=== PATIENT | female | born 1965 | race Caucasian/White ===

== ENCOUNTER 2022-09-27 07:06 | Emergency (ER) | payer OTHER ==
[~2022-09-27] VITALS: Ht 157.5 cm; Wt 63.5 kg
[2022-09-27 07:19] VITALS: BP 131/78; PULSE 82; RESP 18; TEMP 97.8; O2SAT 98
[2022-09-27] MEDS ORDERED: ONDANSETRON 4 MG ODT PO ONE (07:35)
[2022-09-27] MEDS ORDERED: KETOROLAC 30 MG/ML VIAL IM ONE (07:35)
[2022-09-27] MEDS ORDERED: MORPHINE SULFATE 4 MG/ML SYR IM ONE (07:35)
[2022-09-27] MEDS ORDERED: NACL 0.9% 1,000 ML IV ONE (07:50)
[2022-09-27] MEDS ORDERED: MORPHINE SULFATE 2 MG/ML SYR IVP STA (08:04)
[2022-09-27] MEDS ORDERED: ONDANSETRON 4 MG/2 ML VIAL IVP ONE (08:05)
[2022-09-27] MEDS ORDERED: KETOROLAC 15 MG/ML VIAL IVP ONE (08:05)
[2022-09-27 08:28] LABS: BASOPHILS % (AUTO) 0.6 % (0.0-2.0); EOSINOPHILS # (AUTO) 0.1 K/uL (0-0.4); EOSINOPHILS % (AUTO) 0.9 % (0.0-4.0); HEMATOCRIT 37.8 % (36-48); HEMOGLOBIN 12.8 g/dL (12.0-16.0); LYMPHOCYTES # (AUTO) 1.9 K/uL (2.5-16.5); LYMPHOCYTES % (AUTO) 23.9 % (20.5-51.1); MEAN CORPUSCULAR HEMOGLOBIN 29 pg (27-31); MEAN CORPUSCULAR HGB CONC 34 g/dL (33-37); MEAN CORPUSCULAR VOLUME 87.1 fL (80-94); MONOCYTES # (AUTO) 0.5 K/uL (0.8-1.0); MONOCYTES % (AUTO) 6.3 % (1.7-9.3); NEUTROPHILS # (AUTO) 5.3 K/uL (1.8-7.7); NEUTROPHILS % (AUTO) 68.3 % (42.2-75.2); PLATELET COUNT (AUTO) 248 K/uL (140-450); RED BLOOD CELL COUNT(AUTO) 4.34 MIL/uL (4.20-5.40); RED CELL DISTRIBUTION WIDTH 13.3 % (11.6-13.7); WHITE BLOOD COUNT (AUTO) 7.8 K/uL (4.8-10.8)
--- NOTE | 2022-09-27 08:43 | NUR ---
CONTINUATION OF CARE.
[2022-09-27 08:47] LABS: APPEARANCE,URINE CLEAR (CLEAR); BILIRUBIN,URINE NEGATIVE (NEGATIVE); BLOOD, URINE NEGATIVE (NEGATIVE); COLOR,URINE YELLOW (YELLOW); LEUKOCYTE ESTERASE ,URINE NEGATIVE (NEGATIVE); NITRITE, URINE NEGATIVE (NEGATIVE); PH,URINE 6.5 (5.0-9.0); UGLUCOSE 1+ (NEGATIVE)
[2022-09-27 08:51] LABS: ALBUMIN 3.1 g/dL (3.4-5.0); ANION GAP 10.8 (8-16); CREATININE 0.6 mg/dL (0.6-1.3); POTASSIUM 3.8 mmol/L (3.5-5.1); TOTAL BILIRUBIN 0.5 mg/dL (0.0-1.0)
--- NOTE | 2022-09-27 08:56 | NUR ---
57 YO F BIB DAUGHTER PRESSENTS W/LT FLANK PAIN X 2 WKS, WORSENING YESTERDAY. PT STATES SHE WAS SEEN AT [facility], DISCHARGED WITH NORCO PRESCRIPTION WITH NO RELIEF. PAIN 10/10 CONSTANT, SEVERE, NONRADIATING, LOCAL. DECREASE IN APPETITE, NAUSEA X3DAYS. PT DENIES V,D,FEVER, CHILL, FLU SYMPTOMS, URINARY PROBLEMS, INJURY, ESCUDERO, SOB, CP, VISION CHANGES, DIZZINESS. PT CALM IN BED, HEAD ELEVATED, TALKING TO DAUGHTER. NAD NOTED, SAFETY MAINTAINED. HX: Hx Diabetes
[2022-09-27 09:04] LABS: RBC,URINE NONE SEEN /HPF (0-5)
--- NOTE | 2022-09-27 09:35 | NUR ---
PT in [place]
[2022-09-27] MEDS ORDERED: ACET-9527 PO (10:41)
[2022-09-27] MEDS ORDERED: DICL100G5 TP (10:41)
[2022-09-27] MEDS ORDERED: GABA-636 PO (10:41)
[2022-09-27] MEDS ORDERED: IBUP-2213 PO (10:41)
--- NOTE | 2022-09-27 11:17 | NUR ---
Patient discharged with v/s stable. Written and verbal after care instructions given and explained. Patient alert, oriented and verbalized understanding of instructions. Ambulatory with steady gait. All questions addressed prior to discharge. ID band removed. Patient advised to follow up with PMD. Rx of NORCO, GABAPENTIN given. Patient educated on indication of medication including possible reaction and side effects. Opportunity to ask questions provided and answered.
== END 2022-09-27 11:17 | disposition home or self-care (01) ==
LOC: MED 07:06
DX: R10.9 Unspecified abdominal pain (principal); R11.0 Nausea; R63.0 Anorexia; E11.9 Type 2 diabetes mellitus without complications; Z79.899 Other long term (current) drug therapy
CPT/HCPCS: 36415; 74174; 80053; 81001; 83690; 85025; 87086; 96361; 96374; 96375; 99285; J1885; J2270; J2405; J7030